=== PATIENT | female | born 1955 | race Caucasian/White ===

== ENCOUNTER 2019-09-08 08:56 | Day surgery (SDC) | payer BC ==
[2019-09-08] MEDS ORDERED: Propofol 200 MG/20 ML SDV IV ONE (08:57)
[2019-09-08] MEDS ORDERED: Midazolam 1 MG/ML 2 ML SDV IV ONE (08:57)
[2019-09-08] MEDS ORDERED: Lidocaine 1% 30 ML SDV INJECT ONE ×4 (08:57→15:25)
[2019-09-08] MEDS ORDERED: Glycopyrrolate 0.2 MG/ML 2 ML SDV IV ONE (08:57)
[2019-09-08] MEDS ORDERED: fentaNYL 100 MCG/2 ML SDV IV ONE (08:57)
[2019-09-08] MEDS ORDERED: Ondansetron 4 MG/2 ML SDV IV ONE (08:57)
[2019-09-08] MEDS ORDERED: Bupivacaine 0.5% 30 ML SDV INJECT ONE ×4 (08:57→15:25)
[2019-09-08] MEDS ORDERED: Ketorolac 30 MG/ML SDV IVPUSH ONE (08:57)
[2019-09-08] MEDS ORDERED: Lactated Ringers 1,000 ML IV SCH (09:00)
[2019-09-08] MEDS ORDERED: Sodium Chloride 0.9% 10 ML Syringe FLUSH PRN ×2 (09:00)
[2019-09-08] MEDS ORDERED: ceFAZolin 2 GM in Premix Bag 1 BAG IV ONE (09:00)
[2019-09-08] MEDS ORDERED: Bupivacaine 0.5% 30 ML SDV ONE ×2 (11:34→15:28)
[2019-09-08] MEDS ORDERED: Lidocaine 1% 30 ML SDV ONE ×2 (11:34→15:28)
[2019-09-08] MEDS ORDERED: Acetaminophen/oxyCODONE 325-5 MG Tab PO PRN (14:57)
--- NOTE | 2019-09-08 15:01 | PCM.OPNOTE ---
- General Post-Op/Procedure Note Date of Surgery/Procedure: 09/08/19 Operative Procedure(s): left ankle arthroscopy with debridement , open ankle arthrotomy with bone spur excision and subchondral drilling, syndesmosis reduction with tightrope fixation. Pre Op Diagnosis: left ankle pain with bone spurring dorsal ankle, old syndesmosis injury with widening. Post-Op Diagnosis: nuzhat Anesthesia Technique: General LMA Primary Surgeon: Fiona Cox Anesthesia Provider: Sadi Elmore EBL in mLs: 10 Complications: none Condition: Good Free Text/Narrative:: Pt tolerated procedure well and was transported to recovery with vascular status intact to left ankle. Arthrex tight ropes x2 placed at syndesmosis, ATFL was stable. Well padded L&U splint applied with ankle in neutral.
--- NOTE | 2019-09-09 14:34 | OR ---
DATE: 09/08/2019 PREOPERATIVE DIAGNOSES: 1. Chronic left ankle pain after status post open reduction and internal fixation of ankle fracture. 2. Bone spurring of the dorsal ankle, left. 3. 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 POSTOPERATIVE DIAGNOSES: 1. Chronic left ankle pain after status post open reduction and internal fixation of ankle fracture. 2. Bone spurring of the dorsal ankle, left. 3. 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 PROCEDURES PERFORMED: 1. Left ankle arthroscopy with debridement. 2. Left open ankle arthrotomy with bone spur excision of the ankle and subchondral drilling. 3. Left ankle syndesmosis reduction with TightRope fixation. ANESTHESIA: General LMA with preoperative local block of 10 mL 1:1 mixture of 1% lidocaine plain and 0.5% Marcaine plain. TOURNIQUET TIME: 121 minutes pneumatic thigh tourniquet. ESTIMATED BLOOD LOSS: Minimal. SPECIMENS: None. COMPLICATIONS: None. INDICATIONS: Roxie is a 64-year-old female who presents with chronic left ankle pain. She states that she fractured that ankle back in 2008, did get an ORIF and the hardware got taken out 6 weeks after that. She states she has been having continued pain since that time. She states the ankle does feel unstable and she does twist it easily. 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 She states her ankle has been swollen ever since her fracture in 2008. She had sharp pain towards the outside front of her ankle and also inside the ankle joint. She has tried multiple different braces without relief. X-rays of the left ankle reveal joint space narrowing with periarticular spurring of the ankle, healed fracture of lateral malleolus, bony ossicle at the medial ankle and lateral malleolus. There is widening of the medial gutter and spurring at the dorsal ankle. MRI of the left ankle reveals secondary osteoarthritis of the ankle joint with marrow edema of the ankle and looks like cartilage loss at the dorsal aspect. There is a large spur at the dorsal aspect with impingement of the soft tissues and increased signal intensity. It does not look like the syndesmosis ligament is intact, there is widening. It does appear that the ATFL and deltoid are intact. The patient voiced good understanding of proposed procedure and possible complications and elects to have surgery at this time. DESCRIPTION OF PROCEDURE: The patient was taken to the operating room lying in supine position. After adequate anesthesia induction as described above, the left foot and ankle were prepped and draped in usual sterile fashion. A pneumatic thigh tourniquet was inflated to 250 mmHg. Attention was then directed to the left ankle where an ankle distractor was applied and the 2 small stab hole incisions were made, one was just medial to the anterior tibial tendon being careful to avoid the saphenous neurovascular bundle. The ankle scope was inserted into the ankle and the ankle joint was visualized. Attention was directed to the lateral aspect where I used the scope to transilluminate to make sure I was not in the area of the dorsal cutaneous nerve. I then made a small stab incision just lateral to the peroneus tertius and extensor tendon being careful to avoid the neurovascular bundle. A debrider was inserted to the lateral aspect, and the ankle joint was visualized. There was noted to be a severe amount of synovitis throughout the ankle, especially at the dorsal aspect and the dorsal lateral. This was debrided away, and there was a significant amount of scarred tissue at the syndesmosis that was very thick. I was able to fit my entire shaver easily into the syndesmosis area and it was unstable. I did debride that syndesmosis area of the scar tissue. I also debrided the anterior ankle and I did visualize the lateral and medial gutter, which appeared fairly healthy. There was a large defect and cartilage loss at the dorsal aspect of both the tibia and talus. The remainder of the ankle joint did appear arthritic with chondromalacia present. No other obvious defects. The ankle scope and debrider were then removed from the ankle joint, and the ankle distractor was removed as well. Attention was directed to that medial incision which was extended to approximately 5 cm and sharp and blunt dissection was performed down to the level of the ankle joint capsule. A capsulotomy was made in this area being careful to avoid that neurovascular structure. The ankle joint was opened, and there was a large loose body that was noted at the dorsal aspect and this was not able to be removed. The scopes were removed at this time. There was actually 2 different loose bodies that were large and removed. I then used an osteotome and removed the spurring at the dorsal talus and dorsal tibia. I then used a bone rasp to rasp down any rough edges. I was able to palpate and I did not feel any remaining spur or pinching. I then was able to see the large osteochondral defect and I did use a 0.062 K-wire and drilled the defects on both the talus and tibia. All other areas that I was able to visualize appeared healthy. Fluoroscopy was used to verify adequate resection of the bone spurring. I then used the ankle reduction clamp and reduced the syndesmosis. Fluoroscopy was then again used to ensure proper reduction of the syndesmosis. I then inserted 2 TightRopes across the syndesmosis with ankle reduction clamp still intact. I then removed the clamp and put it to stress under fluoroscopy and it did appear stable without any gapping at the syndesmosis. The areas were then irrigated with copious amounts of sterile saline. I also did note that on fluoroscopy it appeared that the more distal suture button was anterior to the fibula, but I was able to visualize that it was on the fibula and it had good purchase on the fibula. The area was irrigated with copious amounts of sterile saline. Deep closure was completed with 3-0 Vicryl and skin closure was completed with 4-0 nylon. The area was dressed with Xeroform to the incision site, fluffs, Webril, and a well-padded L and U splint with the ankle in neutral position. The patient tolerated anesthesia well and was transported to Recovery with vital signs stable and vascular status intact to the left ankle as noted upon immediate hyperemia upon deflation of the thigh tourniquet. The patient was then discharged home when she met hospital discharge requirements. [facility] /[id number]
== END 2019-09-08 21:27 | disposition home or self-care (01) ==
LOC: DL.SDS 08:56
PROVIDERS: ATTEND Podiatrist
DX: S99.812A Other specified injuries of left ankle, initial encounter (principal); G89.29 Other chronic pain; M25.572 Pain in left ankle and joints of left foot; M77.52 Other enthesopathy of left foot and ankle; M94.272 Chondromalacia, left ankle and joints of left foot; Z98.890 Other specified postprocedural states
CPT/HCPCS: 27635; 27829; 28100; C1713; J0690; J1885; J2001; J2250; J2405; J2704; J3010; J3490; J7120

== ENCOUNTER 2025-07-26 09:37 | Day surgery (SDC) | payer MEDICARE, BC ==
[2025-07-26] MEDS: Moxifloxacin 0.5% Ophth Soln 3 ML Bottle EYERT ONE (10:15)
[2025-07-26] MEDS: Povidone-Iodine 5% Sterile Ophth Soln 30 ML Bottle EYERT ONE ×2 (10:15→10:44)
[2025-07-26] MEDS: Timolol Maleate 0.5% Ophth Soln 5 ML Bottle EYERT ONE (10:17)
[2025-07-26] MEDS: Phenylephrine 10% Ophth Soln 5 ML Bot EYERT PRN (10:17)
[2025-07-26] MEDS: Cataract Ophth Solution EYERT ONE (10:18)
[2025-07-26] MEDS: Apraclonidine 0.5% Ophth Soln 5 ML Bot EYERT ONE (10:44)
[2025-07-26] MEDS: Diclofenac Sodium 0.1% Ophth Soln 5 ML Bottle EYERT ONE (10:48)
[2025-07-26] MEDS: Dexamethasone/Neomycin/Polymyxin B Ophth Oint 3.5 GM Tube EYERT ONE (10:48)
[2025-07-26] MEDS ORDERED: Ondansetron 4 MG/2 ML SDV IVPUSH PRN (11:00)
[2025-07-26] MEDS ORDERED: Dexamethasone 4 MG/ML SDV ONE (13:03)
== END 2025-07-26 11:49 | disposition home or self-care (01) ==
LOC: DL.SDS 09:37
PROVIDERS: ATTEND Ophthalmology
DX: H25.813 Combined forms of age-related cataract, bilateral (principal); E78.2 Mixed hyperlipidemia; I10 Essential (primary) hypertension; E03.9 Hypothyroidism, unspecified; Z79.82 Long term (current) use of aspirin; Z79.899 Other long term (current) drug therapy
CPT/HCPCS: 66984; A9270; J2003; J3373; J3490

== ENCOUNTER 2025-08-09 11:46 | Day surgery (SDC) | payer MEDICARE, BC ==
[~2025-08-09 11:46] MED LIST: Ondansetron 4 MG/2 ML SDV IVPUSH PRN
[2025-08-09] MEDS: Moxifloxacin 0.5% Ophth Soln 3 ML Bottle EYELF ONE (12:33)
[2025-08-09] MEDS: Povidone-Iodine 5% Sterile Ophth Soln 30 ML Bottle EYELF ONE ×2 (12:33→13:29)
[2025-08-09] MEDS: Phenylephrine 10% Ophth Soln 5 ML Bot EYELF ONE (12:34)
[2025-08-09] MEDS: Timolol Maleate 0.5% Ophth Soln 5 ML Bottle EYELF ONE (12:35)
[2025-08-09] MEDS: Cataract Ophth Solution EYELF ONE (12:35)
[2025-08-09] MEDS: Apraclonidine 0.5% Ophth Soln 5 ML Bot EYELF ONE (13:29)
[2025-08-09] MEDS: Diclofenac Sodium 0.1% Ophth Soln 5 ML Bottle EYELF ONE (13:30)
[2025-08-09] MEDS: Dexamethasone/Neomycin/Polymyxin B Ophth Oint 3.5 GM Tube EYELF ONE (13:30)
== END 2025-08-09 14:05 | disposition home or self-care (01) ==
LOC: DL.SDS 11:46
PROVIDERS: ATTEND Ophthalmology
DX: H25.812 Combined forms of age-related cataract, left eye (principal); I10 Essential (primary) hypertension; E78.2 Mixed hyperlipidemia; E03.9 Hypothyroidism, unspecified; E66.9 Obesity, unspecified; Z68.33 Body mass index [BMI] 33.0-33.9, adult; Z79.890 Hormone replacement therapy; Z79.899 Other long term (current) drug therapy
CPT/HCPCS: 66984; A9270; J2003; J3373; J3490